=== PATIENT | male | born 1995 | race Two or more races ===

== ENCOUNTER 2023-01-04 10:48 | Emergency (ER) | payer BC ==
[~2023-01-04] VITALS: Ht 172.7 cm; Wt 74.8 kg
[2023-01-04] MEDS ORDERED: BECL10.62 INH (11:02)
[2023-01-04] MEDS ORDERED: MONT5TAB14 PO (11:02)
[2023-01-04 11:34] VITALS: BP 122/70; TEMP 97.1; O2SAT 99
== END 2023-01-04 11:36 | disposition home or self-care (01) ==
LOC: ER 10:48
DX: S80.01XA Contusion of right knee, initial encounter (principal); S50.311A Abrasion of right elbow, initial encounter; S70.211A Abrasion, right hip, initial encounter; J45.909 Unspecified asthma, uncomplicated; Z79.899 Other long term (current) drug therapy; Z60.2 Problems related to living alone; V29.39XA Other motorcycle (driver) (passenger) injured in unspecified nontraffic accident, initial encounter; Y93.89 Activity, other specified; Y92.89 Other specified places as the place of occurrence of the external cause; Y99.8 Other external cause status
CPT/HCPCS: A4606; A4663